=== PATIENT | male | born 1955 | race Caucasian/White ===

== ENCOUNTER → 2018-01-13 | Outpatient (CLI) | payer BC ==
[2018-01-13 15:27] LABS: ADD MAN DIFF? NO
[2018-01-13 15:31] LABS: BASO % 1 % (0-3); EOS # 0.3 x10^3/uL (0.0-0.7); EOS % 5 % (0-3); HEMOGLOBIN 12.7 g/dL (13.0-17.5); LYMPH # 2.2 x10^3/uL (1.0-4.8); LYMPH % 36 % (24-48); MEAN CORPUSCULAR HEMOGLOBIN 29 pg (25-35); MEAN CORPUSCULAR HGB CONC 34 g/dL (31-37); MEAN CORPUSCULAR VOLUME 88 fL (79-100); MONO # 0.7 x10^3/uL (0.0-1.1); MONO % 11 % (0-9); NEUT # 2.9 x10^3uL (1.8-7.7); NEUT % 47 % (31-73); PLATELET COUNT 251 x10^3/uL (140-400); RED BLOOD COUNT 4.33 x10^6/uL (4.30-5.70); RED CELL DISTRIBUTION WIDTH 14.8 % (11.5-14.5); WHITE BLOOD COUNT 6.1 x10^3/uL (4.0-11.0)
[2018-01-13 15:50] LABS: ALBUMIN 3.8 g/dL (3.4-5.0); ALBUMIN/GLOBULIN RATIO 1.1 (1.0-1.7); ALK PHOS 62 U/L (46-116); ALT (SGPT) 28 U/L (16-63); ANION GAP 9 (6-14); AST (SGOT) 22 U/L (15-37); BLOOD UREA NITROGEN 11 mg/dL (8-26); BUN/CREATININE RATIO 11 (6-20); CARBON DIOXIDE 29 mmol/L (21-32); CHLORIDE 101 mmol/L (98-107); GFR 76.2; GLUCOSE 108 mg/dL (70-99); POTASSIUM 4.2 mmol/L (3.5-5.1); SODIUM 139 mmol/L (136-145); TOTAL BILIRUBIN 0.3 mg/dL (0.2-1.0); TOTAL PROTEIN 7.4 g/dL (6.4-8.2)
[2018-01-14 02:12] LABS: HEMOGLOBIN A1C 6.3 % (4.8-5.6)
[2018-01-14 03:17] LABS: MRSA BY PCR Negative (Negative)
== END | disposition home or self-care (01) ==
LOC: SURGPAT 13:27
DX: Z01.818 Encounter for other preprocedural examination (principal); M48.061 Spinal stenosis, lumbar region without neurogenic claudication; M51.16 Intervertebral disc disorders with radiculopathy, lumbar region; I10 Essential (primary) hypertension
CPT/HCPCS: 36415; 80053; 83036; 85025; 87641; 93005

== ENCOUNTER → 2018-01-20 | Day surgery (SDC) | payer BC ==
[~2018-01-20] MED LIST: DESFLURANE > 120 MINUTES IH; DEXAMETHASONE SOD PHOS 20 MG/5 ML VIAL.; GLYCOPYRROLATE 1 MG/5 ML VIAL.; HYDROcodone/APAP 7.5/325MG 1 TAB TABLET; KETOROLAC 30 MG/ML INJ FOR OR. INJ; LIDOCAINE 1% PF 2 ML VIAL. ID; MIDAZOLAM HCL/PF 2 MG/2 ML VIAL.; MORPHINE SULFATE 4 MG/ML DISP.SYRIN. IV; ONDANSETRON PF 4 MG/2 ML VIAL.; ONDANSETRON PF 4 MG/2 ML VIAL. IV; PHENYLEPHRINE 10 MG/ML VIAL.; PROCHLORPERAZINE 10 MG/2 ML VIAL. IV; PROPOFOL 20 ML IV; PROPOFOL 50 ML IV; REMIFENTANIL 1 MG VIAL. IV; REMIFENTANIL 2 MG VIAL. IV; ROCURONIUM 50 MG/5 ML VIAL.; fentaNYL PF VIAL 100 MCG/2 ML VIAL; fentaNYL PF VIAL 100 MCG/2 ML VIAL IV
[2018-01-20] MEDS: IV RINGERS,LACTATED 1000ML 1,000 ML IV (08:02)
[2018-01-20 08:04] LABS: POC GLUCOSE 117 mg/dL (70-99)
[2018-01-20] MEDS: VANCOMYCIN 1GM IVPB FOR OMNI 250 ML IV (08:45)
[2018-01-20] MEDS: BUPIVACAINE MPF 0.5% 30 ML VIAL. IJ (09:27)
[2018-01-20] MEDS: THROMBIN TOPICAL 20,000 UNIT SPRAY.SYRN KIT TP (09:27)
[2018-01-20] MEDS: BACITRACIN 50,000 UNIT in IV NORMAL SALINE 1000ML BAG 1,000 ML IRR (09:27)
[2018-01-20] MEDS: EPINEPHrine 1 MG/ML VIAL INJ (09:27)
[2018-01-20] MEDS: GELATIN SPONGE SIZE 100. (09:27)
[2018-01-20] MEDS: KETOROLAC 60 MG/2 ML INJ FOR OR. (09:27)
[2018-01-20 12:23] LABS: POC GLUCOSE 133 mg/dL (70-99)
[2018-01-20] MEDS: fentaNYL PF VIAL 100 MCG/2 ML VIAL IV ×2 (13:08→13:18)
[2018-01-20] MEDS: HYDROcodone/APAP 7.5/325MG 1 TAB TABLET PO (13:24)
== END | disposition home or self-care (01) ==
LOC: SURG 06:55
DX: M48.061 Spinal stenosis, lumbar region without neurogenic claudication (principal); M51.26 Other intervertebral disc displacement, lumbar region; E11.9 Type 2 diabetes mellitus without complications; I10 Essential (primary) hypertension; M10.9 Gout, unspecified; Z90.49 Acquired absence of other specified parts of digestive tract; Z98.890 Other specified postprocedural states; Z88.0 Allergy status to penicillin; Z79.82 Long term (current) use of aspirin; Z79.84 Long term (current) use of oral hypoglycemic drugs; Z82.49 Family history of ischemic heart disease and other diseases of the circulatory system
CPT/HCPCS: 63030; 76000; 82962; 88304; 88311; 97162-GP; 97530-GP; G8978-CK-GP; G8979-CK-GP; G8980-CK-GP; J0171; J1100; J1885; J2250; J2405; J2704; J3010; J3370; J3490; J7030

== ENCOUNTER → 2019-06-16 | Outpatient (CLI) | payer OTHER ==
[2018-01-20 13:27] VITALS: BP 125/67
[~2019-06-16] MED LIST changes: +ASPI-630 PO; +ATOR10TA60 PO; +BUPR150T6 PO; +CELE200C PO; +CHOL10003 PO; +CYAN25008 PO; +CYCL10TA2 PO; -DESFLURANE > 120 MINUTES IH; -DEXAMETHASONE SOD PHOS 20 MG/5 ML VIAL.; +DEXT20TA2 PO; +DOCU-109 PO; +DULO60CA6 PO; +ESOM20CA PO; +GABA300C18 PO; -GLYCOPYRROLATE 1 MG/5 ML VIAL.; +HYDR-2765 PO; +HYDR-3164 PO; -HYDROcodone/APAP 7.5/325MG 1 TAB TABLET; +IBUP-1060 PO; -KETOROLAC 30 MG/ML INJ FOR OR. INJ; +LAMO150T2 PO; -LIDOCAINE 1% PF 2 ML VIAL. ID; +LORA10TA68 PO; +LOSA1TAB19 PO; +METF500T9 PO; -MIDAZOLAM HCL/PF 2 MG/2 ML VIAL.; -MORPHINE SULFATE 4 MG/ML DISP.SYRIN. IV; +MULT1TAB52 PO; -ONDANSETRON PF 4 MG/2 ML VIAL.; -ONDANSETRON PF 4 MG/2 ML VIAL. IV; -PHENYLEPHRINE 10 MG/ML VIAL.; -PROCHLORPERAZINE 10 MG/2 ML VIAL. IV; +PROP20TA PO; -PROPOFOL 20 ML IV; -PROPOFOL 50 ML IV; -REMIFENTANIL 1 MG VIAL. IV; -REMIFENTANIL 2 MG VIAL. IV; -ROCURONIUM 50 MG/5 ML VIAL.; +TADA5TAB PO; +TRAZ-86 PO; -fentaNYL PF VIAL 100 MCG/2 ML VIAL; -fentaNYL PF VIAL 100 MCG/2 ML VIAL IV
--- NOTE | 2019-06-17 02:55 | PAIN ---
DATE OF SERVICE: 06/16/2019 INITIAL CONSULTATION FOR PAIN CLINIC CHIEF COMPLAINT: Low back and left lower extremity pain. HISTORY OF PRESENT ILLNESS: This is a 63-year-old male who presents with history of pain in low back and left lower extremity, status post lumbar diskectomy at L4-5 on 01/20/2018. The patient did very well with this, but reports about 4 months ago, he fell off a ladder about 18 foot and started to have some increased pain in his back and that he fell twice at home of some stairs and on a wet floor within the last month or two causing increased pain in the low back, left leg radiating to posterior gluteus, posterior thigh, lateral thigh, anterior thigh, medial thigh, medial lower leg with pain in the foot, which is becoming more constant. Also, some significant spasms in the posterior gluteus, lateral thigh, anterior thigh and into the foot as well. The patient reports the right side has no significant symptoms, but some pain in the low back on the right as well. The patient reports the pain in the low back and left leg is sharp, stabbing, throbbing, shooting, radiating. It changes during the day, worse with activity, standing, walking, changing positions and intermittent in intensity, but always present, has aching as well in the back itself. The patient reports it is worse with standing, walking, changing positions, does awaken him from sleep, intermittently, but most every night. The patient reports it does not affect his bowel or bladder control, but does affect his ability to walk. He has left leg fatigues significantly from the right. He has had no loss of function completely, but significant fatigability on the left leg. The patient rates his disability rating from 0-10, 10 being the worst, is a 6-7 with family and home responsibilities, 9 with recreation and sexual behavior, 7-8 with occupational behavior, 2 with social activity, 6 with self-care activities and 0 with life support activities. The patient did have MRI scan of the lumbar spine showing interval postoperative changes at L4-5 with recurrent disk herniation broad-based posterior central disk protrusion with severe central stenosis and lateral narrowing. L5-S1 shows persistent shallow posterior central disk protrusion with local destruction of the annulus and mild central stenosis as well. PAST MEDICAL HISTORY: Significant for type 2 diabetes, hypertension, gastroesophageal reflux. PREVIOUS SURGERY: Includes appendectomy, lumbar diskectomy in 2018, carpal tunnel repair, umbilical hernia repair as well. CURRENT MEDICATIONS: Include Adderall, atorvastatin, bupropion, Cymbalta, lamotrigine, gabapentin, losartan, metformin, trazodone, propranolol, daily baby aspirin, Cialis, Claritin, ibuprofen, and multivitamins, also Nexium. ALLERGIES: THE PATIENT IS ALLERGIC TO PENICILLIN. FAMILY HISTORY: Significant for heart disease. SOCIAL HISTORY: The patient has a history of alcoholism, but is not drinking for years and does not smoke. Does not use any illegal, illicit or recreational drugs. He is , lives with his spouse. Lives locally in [place], [place] and works at the [employer] in [place] where he is on his feet most of his 8-hour shift working. REVIEW OF SYSTEMS: The patient's review of systems is positive for those items mentioned in history of present illness. All systems reviewed and otherwise negative. It is complete, full and well documented on the patient's chart. PHYSICAL EXAMINATION: VITAL SIGNS: The patient's blood pressure 147/88, pulse is 91, respirations 18, temperature 98.2 degrees Fahrenheit, height is 5 feet 8 inches, weight is 227 pounds. GENERAL: The patient is awake, alert, oriented, appropriate, very pleasant demeanor. HEENT: Shows normocephalic, atraumatic. Extraocular movements are intact and symmetrical. Oral cavity: Mucous membranes moist and pink. Dentition is intact. NECK: Shows anterior throat supple without palpable lymphadenopathy noted. Swallow reflex symmetrical. CHEST: Shows normal on inspection. Breath sounds clear to auscultation bilaterally. HEART: Shows S1, S2 clear. No murmurs auscultated. ABDOMEN: Soft, nontender, nondistended. No palpable organomegaly is noted. No rebound or guarding demonstrated. BACK: Shows spine grossly in the midline. Normal appearing thoracic kyphosis and minor flattening of lumbar lordotic curvature with well-healed surgical scar in the midline. Lumbar paraspinous muscle shows symmetrical on inspection, on palpation shows some moderate tenderness diffusely bilaterally in the lumbar paraspinous muscles, but only diffusely without significant radiation. The patient does show good rotational motion of lumbar spine, both laterally greater than 10 degrees right and left as well as extension greater than 10 degrees, forward flexion 45 degrees without significant increase in pain, no tenderness over the spinous processes, sacrum or sacroiliac regions. EXTREMITIES: The patient's lower extremities show deep tendon reflexes at 2+ in the patellar, 1+ tendo-calcaneus tendons, equal. Motor exam is approximately 4 on a scale of 5 on the left and 5/5 on the right with dorsiflexion, extension, quadriceps and hamstring flexion. Peripheral pulses are 1+ posterior tibial. No peripheral edema is noted bilaterally. Straight leg raise noted positive on the left at about 40 degrees. Right side is negative. Gaenslen's and Cheo's maneuvers are negative bilaterally. The patient is able to stand, has difficulty raising from a seated position as he requires the use of the arms of the chair to get up on his left side, is walking with a slight favoring gait, appears to favor the left lower extremity, not using any assistive devices, however, such as canes or walkers to ambulate. SKIN: Shows warm and dry, good turgor. No edema. No sores, rashes or bruising. IMPRESSION: 1. This is a 63-year-old male with history of low back pain, left lower extremity pain in a radicular fashion following L4-L5 dermatomal distribution, status post lumbar diskectomy on 01/20/2018 with recurrent pain and recurrent disk. 2. MRI scan of lumbar spine as noted. 3. Diabetes. 4. Hypertension. 5. Gastroesophageal reflux. PLAN: Options were discussed with the patient including conservative medical management, physical therapies, interventional techniques tried physical therapy, has also been doing stretching and strengthening exercises on his own. The physical therapy was too painful for him to complete, so he is doing some stretching on his own, which he reports does help, but only minimally. He would like to pursue interventional techniques as he has done well with these in the past. We discussed a lumbar epidural steroid injection using description as well as anatomical models to describe the procedure. The patient will wait for preauthorization from his insurance provider and we will plan on lumbar epidural steroid injection at the L4-5 level using fluoroscopic guidance at that time. In the meantime, we will give the patient Medrol Dosepak. The patient was given instruction as well as side effects to be aware with the medication and will follow up in approximately 2 weeks for plan on lumbar epidural steroid injection on his return. MIAH HOLT MD DR: Tremayne JOB#: [id number] / [id number]
== END | disposition home or self-care (01) ==
LOC: PNCL 09:45
PROVIDERS: ATTEND Anesthesiology
DX: M54.16 Radiculopathy, lumbar region (principal); E11.9 Type 2 diabetes mellitus without complications; I10 Essential (primary) hypertension; K21.9 Gastro-esophageal reflux disease without esophagitis; Z79.899 Other long term (current) drug therapy; Z90.89 Acquired absence of other organs; Z98.890 Other specified postprocedural states; Z88.0 Allergy status to penicillin
CPT/HCPCS: G0463

== ENCOUNTER → 2019-06-30 | Outpatient (CLI) | payer OTHER ==
[2018-01-20 13:27] VITALS: BP 125/67
[~2019-06-30] MED LIST changes: +IOHEXOL 180 MG/ML 10 ML VIAL. ONE; +METF500T11 PO; -METF500T9 PO; +methylPREDNISolone ACETATE 40 MG/ML VIAL. ONE; +methylPREDNISolone ACETATE 80 MG/ML VIAL. ONE
--- NOTE | 2019-06-30 12:27 | PAIN ---
DATE OF SERVICE: 06/30/2019 PROGRESS NOTE FOR PAIN CLINIC DIAGNOSES: Lumbar radiculopathy with lumbar degenerative disk disease and lumbar post-laminectomy syndrome. HISTORY OF PRESENT ILLNESS: The patient is a 63-year-old male, who returns for followup status post initial evaluation and preauthorization for epidural steroid injection. The patient has obtained that now and would like to proceed. The patient reports still significant pain in the low back, mostly in the left side greater than right, posterior gluteus, posterior thigh and calf. The patient reports it is an 8 on a scale of 10 at its worst in the past week, 7 on average, 3 at its least and is a 7 today. The patient reports it is sharp and shooting, constant in the left foot and the front of the foot when sitting and the back in the foot when standing, on and off in intensity. The patient reports no new motor or sensory deficits, no new bowel or bladder incontinence. PHYSICAL EXAMINATION: VITAL SIGNS: The patient's blood pressure is 132/83, pulse 77, respirations 18, temperature 98.4 degrees Fahrenheit. Height is 5 feet 8 inches, weight is 229 pounds. GENERAL: The patient is awake, alert, oriented, appropriate, very pleasant demeanor. HEENT: Shows normocephalic, atraumatic. Extraocular movements are intact and symmetrical. Oral cavity: Mucous membranes moist and pink; dentition is intact. NECK: Shows anterior throat supple without palpable lymphadenopathy noted. Swallow reflex symmetrical. CHEST: Shows normal on inspection. Breath sounds clear to auscultation bilaterally. HEART: Shows S1, S2 clear. No murmurs auscultated. ABDOMEN: Soft, nontender and nondistended. No palpable organomegaly is noted. No rebound or guarding demonstrated. BACK: Shows spine grossly in the midline. Normal-appearing thoracic kyphosis and lumbar lordotic curvature. Lumbar paraspinous muscle shows symmetrical on inspection with a well-healed surgical scar. Paraspinous muscles are markedly tender on palpation in the middle and lower distribution of the paraspinous muscles without radiation. EXTREMITIES: The patient's lower extremities show deep tendon reflexes are 2+ in the patellar and 1+ in the tendo-calcaneus tendons. Motor exam is approximately 4 on a scale of 5 on the left with dorsiflexion and extension, 5/5 on the right. Peripheral pulses are 1+, posterior tibial. No peripheral edema is noted bilaterally. Options were discussed with the patient. The patient's old chart was reviewed as his current medication regimen updated. Current review of systems updated today as well. We will proceed with a lumbar epidural steroid injection today with fluoroscopic guidance. Risks were again discussed including, but not limited to bleeding, infection, possibility of epidural hematoma, subsequent neurologic compromise, dural puncture, headaches, spinal cord and/or nerve damage, side effects of steroid medication and poor results regarding pain control. The patient understands and wished to proceed. The patient will return to clinic in approximately 2 weeks for followup. He was counseled on return appointment, activity level and side effects to be aware of. DIAGNOSES: Lumbar radiculopathy with lumbar degenerative disk disease, post-lumbar laminectomy syndrome. PROCEDURE: Lumbar epidural steroid injection, translaminar approach, L5-S1 level, using C-arm fluoroscopic guidance under sterile prep and drape using local anesthetic. MEDICATION INJECTED: A total of 120 mg Depo-Medrol plus 10 mL of preservative-free normal saline and 2 mL of contrast. CONDITION AT DISCHARGE: Stable. The patient tolerated procedure well, had no complications. MIAH HOLT MD DR: LORENE/jean paul JOB#: [id number] / [id number]
== END ==
LOC: PNCL 08:51
PROVIDERS: ATTEND Anesthesiology
DX: M51.16 Intervertebral disc disorders with radiculopathy, lumbar region (principal); M96.1 Postlaminectomy syndrome, not elsewhere classified; M54.5 Low back pain
CPT/HCPCS: 62323; J1030; J1040; Q9965

== ENCOUNTER → 2019-07-21 | Outpatient (CLI) | payer OTHER ==
[2018-01-20 13:27] VITALS: BP 125/67
[~2019-07-21] MED LIST changes: -IOHEXOL 180 MG/ML 10 ML VIAL. ONE; -LAMO150T2 PO; +LAMO150T4 PO; -methylPREDNISolone ACETATE 40 MG/ML VIAL. ONE; -methylPREDNISolone ACETATE 80 MG/ML VIAL. ONE
--- NOTE | 2019-07-22 01:26 | PAIN ---
DATE OF SERVICE: 07/21/2019 PROGRESS NOTE FOR PAIN CLINIC DIAGNOSES: Lumbar radiculopathy with lumbar degenerative disk disease and post-lumbar laminectomy syndrome. HISTORY OF PRESENT ILLNESS: The patient is a 63-year-old male who returns for followup status post lumbar epidural steroid injection x 1. The patient reports about 75% improvement initially for the first few weeks. After the past few days, it is down to about a 50% improvement, doing much better overall. The patient reports still pain in the low back and into the left lower extremity, posterior gluteus, posterior thigh, posterior calf and heel, but the patient reports the pain was almost completely resolved and the heel after the first injection is beginning to return now. The patient reports he was increasing his activity with greater distance walking, doing work activities, home activities with greater ease and comfort. The patient reports still has some muscle cramps in the legs only thing that keeps him up at night. Otherwise, he sleeps well without disturbance from the pain. The patient rates his pain over the past week at 8 on a scale of 10 at its worst, 6 on average, 1 at its least and is a 6 today. The patient reports it is sharp, stabbing, becoming more constant starting to return, but still on and off in intensity. The patient reports still radicular pain in the L5-S1 dermatomal distribution on the left. No motor loss, no new bowel or bladder incontinence. PHYSICAL EXAMINATION: VITAL SIGNS: The patient's blood pressure is 112/75, pulse 74, respirations 18, temperature 98.1 degrees Fahrenheit, height is 5 feet 8 inches, weight is 226 pounds. GENERAL: The patient is awake, alert, oriented, appropriate, very pleasant demeanor. HEENT: Shows normocephalic, atraumatic. Extraocular movements are intact and symmetrical. Oral cavity: Mucous membranes moist and pink. Dentition is intact. NECK: Shows anterior throat supple without palpable lymphadenopathy noted. Swallow reflex symmetrical. CHEST: Shows normal on inspection. Breath sounds are clear to auscultation bilaterally. HEART: Shows S1, S2 clear. No murmurs auscultated. ABDOMEN: Soft, nontender, nondistended. No palpable organomegaly is noted. No rebound or guarding demonstrated. BACK: Shows spine grossly in the midline. Normal appearing thoracic kyphosis, some minor flattening of lumbar lordotic curvature with well-healed surgical scarring noted in the lumbar distribution. Lumbar paraspinous muscle shows symmetrical on inspection, on palpation shows some moderate tenderness diffusely, but only diffusely without significant radiation in the lumbar paraspinous musculature itself. The patient shows good rotational motion of lumbar spine, both laterally as well as extension and flexion without difficulty. EXTREMITIES: The patient's lower extremities show deep tendon reflexes at 2+ in the patellar, 1+ tendo-calcaneus tendons. Motor exam is approximately 4 on a scale of 5 on the left, 5/5 on the right with dorsiflexion and extension. Peripheral pulses are 1+ posterior tibial. No peripheral edema is noted. The patient still has a slight straight leg raise on the left at about 40 degrees, decreased with knee flexion, right side is negative. Options were discussed with the patient. The patient's old chart was reviewed as his current medication regimen updated. Current review of systems updated today as well. We will preauthorize the patient for a second lumbar epidural steroid injection and the patient still has clinical radiculopathy in the L5-S1 dermatomal distribution on the left. We will plan for lumbar L5-S1 level epidural steroid injection on return. The patient will continue doing stretching and strengthening exercises on his own, still walking daily as tolerated, maintain his exercise. The patient will return to clinic as scheduled plan on second lumbar epidural steroid injection at that time. MIAH HOLT MD DR: LORENE/jean paul JOB#: [id number] / [id number]
== END | disposition home or self-care (01) ==
LOC: PNCL 14:12
PROVIDERS: ATTEND Anesthesiology
DX: M51.16 Intervertebral disc disorders with radiculopathy, lumbar region (principal)
CPT/HCPCS: G0463

== ENCOUNTER → 2019-08-04 | Outpatient (CLI) | payer OTHER ==
[2018-01-20 13:27] VITALS: BP 125/67
[~2019-08-04] MED LIST changes: +IOHEXOL 180 MG/ML 10 ML VIAL. ONE; +LAMO150T2 PO; -LAMO150T4 PO; +methylPREDNISolone ACETATE 40 MG/ML VIAL. ONE; +methylPREDNISolone ACETATE 80 MG/ML VIAL. ONE
--- NOTE | 2019-08-04 08:52 | PAIN ---
DATE OF SERVICE: 08/04/2019 PROGRESS NOTE FOR PAIN CLINIC DIAGNOSES: Lumbar radiculopathy with lumbar degenerative disk disease and lumbar postlaminectomy syndrome. HISTORY OF PRESENT ILLNESS: The patient is a 63-year-old male who returns for followup status post lumbar epidural steroid injection x1 with about 75% improvement initially. The patient reports still pain returning in the low back and left lower extremity. He is waiting for preauthorization with insurance provider, which he is obtained and would like to proceed with a second injection today, still has pain in the low back, left lower extremity, posterior gluteus, posterior thigh, and posterior calf. The patient reports it is an 8 on a scale of 10 at its worst, 7 on average, 3 at its least, and is a 7 today. The patient reports it is becoming constant, aching, shooting with walking, standing, better with sitting or lying down, awakens him from sleep occasionally, but not more than every 5 hours at night. The patient reports no new motor or sensory deficits. No new bowel or bladder incontinence. He has some back spasms and cramps as well and feels that his balance is off as he is favoring his left lower extremity. PHYSICAL EXAMINATION: VITAL SIGNS: The patient's blood pressure 129/99, pulse 68, respirations are 16, temperature is 98.0 degrees Fahrenheit, height is 5 feet 8 inches, and weight is 228 pounds. GENERAL: The patient is awake, alert, oriented, appropriate, very pleasant demeanor. HEENT: Shows normocephalic, atraumatic. Extraocular movements are intact and symmetrical. Oral cavity: Mucous membranes moist and pink. Dentition is intact. NECK: Shows anterior throat supple without palpable lymphadenopathy noted. Swallow reflex symmetrical. CHEST: Shows normal on inspection. Breath sounds clear to auscultation bilaterally. HEART: Shows S1, S2 clear. No murmurs auscultated. ABDOMEN: Soft, nontender, and nondistended. No palpable organomegaly is noted. No rebound or guarding demonstrated. BACK: Shows spine grossly in the midline. Normal appearing thoracic kyphosis and some minor flattening of lumbar lordotic curvature. Well-healed lumbar surgical scar noted. Lumbar paraspinous muscle shows symmetrical on inspection, on palpation shows some moderate tenderness diffusely without significant radiation. The patient has good rotational motion of the lumbar spine both laterally as well as extension and flexion without significant pain reported with rotation or extension and flexion bilaterally. EXTREMITIES: Lower extremities show deep tendon reflexes 2+ in the patellar, 1+ tendo-calcaneus tendons. Motor exam is approximately 4 on a scale 5 on the left with dorsiflexion and extension, 5/5 on the right. Peripheral pulses are 1+ posterior tibia. No peripheral edema is noted bilaterally. Options were discussed with the patient. The patient's old chart was reviewed as his current medication regimen updated. Current review of systems updated today as well and we will proceed with a second lumbar epidural steroid injection today with fluoroscopic guidance. Risks were again discussed including, but not limited to bleeding, infection, possibility of epidural hematoma, subsequent neurological compromise, dural puncture, headaches, spinal cord and/or nerve damage, side effects of steroid medication and poor results regarding pain control. The patient understands and wished to proceed. The patient will return to clinic in approximately 2 weeks for followup. She was counseled on return appointment, activity level, and side effects to be aware of. DIAGNOSES: Lumbar radiculopathy with lumbar degenerative disk disease and lumbar postlaminectomy syndrome. PROCEDURE: Lumbar epidural steroid injection, translaminar approach L5-S1 level using Luda fluoroscopic guidance under sterile prep and drape using local anesthetic. MEDICATION INJECTED: Total of 120 mg Depo-Medrol plus 10 mL of preservative-free normal saline and 2 mL of contrast. CONDITION AT DISCHARGE: Stable. The patient tolerated the procedure well, had no complications. MIAH HOLT MD DR: LORENE/jean paul JOB#: [id number] / [id number]
== END ==
LOC: PNCL 07:30
PROVIDERS: ATTEND Anesthesiology
DX: M51.16 Intervertebral disc disorders with radiculopathy, lumbar region (principal); M96.1 Postlaminectomy syndrome, not elsewhere classified
CPT/HCPCS: 62323; J1030; J1040; Q9965

== ENCOUNTER → 2019-08-18 | Outpatient (CLI) | payer OTHER ==
[2018-01-20 13:27] VITALS: BP 125/67
[~2019-08-18] MED LIST changes: -IOHEXOL 180 MG/ML 10 ML VIAL. ONE; -LAMO150T2 PO; +LAMO150T4 PO; -methylPREDNISolone ACETATE 40 MG/ML VIAL. ONE; -methylPREDNISolone ACETATE 80 MG/ML VIAL. ONE
--- NOTE | 2019-08-18 09:20 | PAIN ---
DATE OF SERVICE: 08/18/2019 PROGRESS NOTE FOR PAIN CLINIC DIAGNOSES: Lumbar radiculopathy with lumbar degenerative disk disease and lumbar post-laminectomy syndrome. HISTORY OF PRESENT ILLNESS: The patient is a 63-year-old male who returns for followup status post lumbar epidural steroid injection x 2. The patient reports about 75% improvement initially in the low back and left lower extremity. The patient reports he is having some increased pain. He does have increased stressors at work. He has been on his feet more often in the last week, but before that was walking greater distances, doing work activities with greater ease and comfort as well as household activities, traveling with greater ease. The patient reports it is still not waking him from sleep at night, better with sitting or lying down, worse with walking, standing, changing positions. The patient reports the pain is returning in the low back, bilateral lower extremities, posterior gluteus, posterolateral thigh, lateral anterior thigh, posterior lower legs, especially on the left side, but some on the right as well. The patient reports it is cramping, aching, shooting, on and off in intensity, again worse with activity. The patient rates it is 8 on a scale of 10 at its worst over the past week, 7 on average, 3 at its least and is a 5 today. The patient reports no new motor or sensory deficits, no new bowel or bladder incontinence. Still with some significant radicular pain now, in a L5-S1 dermatomal distribution, again worse on the left. PHYSICAL EXAMINATION: VITAL SIGNS: The patient's blood pressure 140/83, pulse 80, respirations 16, temperature 97.8 degrees Fahrenheit, weight is 226 pounds. GENERAL: The patient is awake, alert, oriented, appropriate, very pleasant demeanor. HEENT: Head shows normocephalic and atraumatic. Extraocular movements are intact and symmetrical. Oral cavity: Mucous membranes moist and pink. Dentition is intact. NECK: Shows anterior throat supple without palpable lymphadenopathy noted. Swallow reflex is symmetrical. CHEST: Shows normal on inspection. Breath sounds are clear bilaterally. HEART: Shows S1, S2 clear. ABDOMEN: Soft, nontender, nondistended. BACK: Shows spine grossly in the midline. Normal appearing thoracic kyphosis, some minor flattening of lumbar lordotic curvature with well-healed surgical scarring noted. Lumbar paraspinous muscle shows symmetrical on inspection. On palpation shows some moderate tenderness diffusely in the low lumbar distribution, but without radiation. The patient has good rotational motion of lumbar spine, both laterally as well as extension and flexion without significant increase in pain. EXTREMITIES: Lower extremities show deep tendon reflexes 2+ in the patellar, 1+ tendo-calcaneus tendons. Motor exam is approximately 4 on a scale of 5 with left dorsiflexion, extension, 5/5 on the right. Peripheral pulses are 1+ posterior tibial. No peripheral edema is noted. Options were discussed with the patient. The patient's old chart was reviewed as his current medication regimen updated. Current review of systems updated today as well and we will preauthorize the patient for lumbar epidural steroid injection #3, as he has done quite well with the last 2 about 75% improvement initially, pain returning on the low back in a radicular pattern in the L5-S1 dermatomal distribution, worse on the left than the right. The patient will continue doing stretching and strengthening exercises, walking as tolerated. The patient will return to clinic in approximately 1 week for third lumbar epidural steroid injection at the L5-S1 level at that time. MIAH HOLT MD DR: LORENE/jean paul JOB#: [id number] / [id number]
== END | disposition home or self-care (01) ==
LOC: PNCL 07:40
PROVIDERS: ATTEND Anesthesiology
DX: M51.16 Intervertebral disc disorders with radiculopathy, lumbar region (principal); M96.1 Postlaminectomy syndrome, not elsewhere classified
CPT/HCPCS: G0463

== ENCOUNTER → 2019-09-15 | Outpatient (CLI) | payer OTHER ==
[2018-01-20 13:27] VITALS: BP 125/67
[~2019-09-15] MED LIST changes: +IOHEXOL 180 MG/ML 10 ML VIAL. ONE; +methylPREDNISolone ACETATE 40 MG/ML VIAL. ONE; +methylPREDNISolone ACETATE 80 MG/ML VIAL. ONE
--- NOTE | 2019-09-15 08:25 | PAIN ---
DATE OF SERVICE: 09/15/2019 PROGRESS NOTE FOR PAIN CLINIC DIAGNOSES: Lumbar radiculopathy with lumbar degenerative disk disease and lumbar post-laminectomy syndrome. HISTORY OF PRESENT ILLNESS: The patient is a 64-year-old male who returns for followup status post lumbar epidural steroid injections x 2. The patient reports about 75% improvement initially, but now the pain is shifted to the right side in his low back and leg more than the left. The patient reports it is worse with walking, standing, especially about an hour after he gets up in the morning and throughout the day with weightbearing. The patient reports it is better with sitting or lying down. Rates as a 9 on a scale of 10 at its worst over the past week, 8 on average, 3 at its least and is an 8 today. The patient reports it is sharp and tight, constant, again more on the right side, the posterior gluteus, posterior thigh and calf, some on the right as well anteriorly, but mostly across the low back posteriorly and some on the left side. The left side doing much better, but the right side now is quite painful. The patient reports no new motor or sensory deficits, no new bowel or bladder incontinence. Initially, he was increasing his activity with distance walking, doing work activities, household activities, but now over the past week or so, the right side has been hurting. He has been decreasing his activity as well. The patient reports no new motor or sensory deficits, no new bowel or bladder incontinence or other complaints. PHYSICAL EXAMINATION: VITAL SIGNS: The patient's blood pressure is 155/103, pulse 84, respirations 16, temperature 97.4 degrees Fahrenheit, height is 5 feet 8 inches and weight is 231 pounds. GENERAL: The patient is awake, alert, oriented, appropriate, very pleasant demeanor. HEENT: Shows normocephalic, atraumatic. Extraocular movements are intact and symmetrical. Oral cavity shows mucous membranes moist and pink. Dentition is intact. NECK: Shows anterior throat supple without palpable lymphadenopathy noted. Swallow reflex symmetrical. CHEST: Shows normal on inspection. Breath sounds clear to auscultation bilaterally. HEART: Shows S1, S2 clear. No murmurs auscultated. ABDOMEN: Soft, nontender, nondistended. No palpable organomegaly is noted. No rebound or guarding demonstrated. BACK: Shows spine grossly in the midline. Normal appearing thoracic kyphosis and some minor flattening of lumbar lordotic curvature with well-healed surgical scar noted. Lumbar paraspinous muscle shows symmetrical on inspection, on palpation shows some moderate tenderness diffusely without radiation. The patient has good rotational motion of lumbar spine, both laterally as well as extension and flexion. EXTREMITIES: The patient's lower extremities show deep tendon reflexes 2+ in the patellar, 1+ tendo-calcaneus tendons. Motor exam is 4 on a scale of 5 on the left and 5/5 on the right with dorsiflexion, extension, but intact. Peripheral pulses are 1+ posterior tibia. No peripheral edema is noted. Options were discussed with the patient. The patient's old chart was reviewed as his current medication regimen updated. Current review of systems updated today as well. We will proceed with a third in the series of lumbar epidural steroid injection today with fluoroscopic guidance. Risks were again discussed including, but not limited to bleeding, infection, possibility of epidural hematoma, subsequent neurological compromise, dural puncture, headaches, spinal cord and/or nerve damage, side effects of steroid medication and poor results regarding pain control. The patient understands and wished to proceed. The patient will return to clinic in approximately 2 weeks for followup. He was counseled as to return appointment, activity level and side effects to be aware of. DIAGNOSIS: Lumbar radiculopathy with lumbar degenerative disk disease and lumbar post-laminectomy syndrome. PROCEDURE: Lumbar epidural steroid injection, translaminar approach at L5-S1 level using C-arm fluoroscopic guidance under sterile prep and drape using local anesthetic. MEDICATION INJECTED: A total of 120 mg Depo-Medrol plus 10 mL of preservative-free normal saline and 2 mL of contrast. CONDITION AT DISCHARGE: Stable. The patient tolerated procedure well, had no complications. MIAH HOLT MD DR: LORENE/jean paul JOB#: [id number] / [id number]
== END ==
LOC: PNCL 07:39
PROVIDERS: ATTEND Anesthesiology
DX: M51.16 Intervertebral disc disorders with radiculopathy, lumbar region (principal); M96.1 Postlaminectomy syndrome, not elsewhere classified
CPT/HCPCS: 62323; J1030; J1040; Q9965

== ENCOUNTER → 2021-03-01 | Outpatient (CLI) | payer OTHER ==
[2018-01-20 13:27] VITALS: BP 125/67
[~2021-03-01] MED LIST changes: +BUPR150T21 PO; -BUPR150T6 PO; -IOHEXOL 180 MG/ML 10 ML VIAL. ONE; +METF-658 PO; -METF500T11 PO; +METH-562 PO; +METH4TAB2 PO; +MULT-445 PO; -MULT1TAB52 PO; +OXYC1TAB15 PO; +TRAZ-123 PO; -TRAZ-86 PO; -methylPREDNISolone ACETATE 40 MG/ML VIAL. ONE; -methylPREDNISolone ACETATE 80 MG/ML VIAL. ONE
[2021-03-01 13:24] LABS: BASO % 0 % (0-3); EOS % 1 % (0-3); HEMATOCRIT 33.6 % (39.0-53.0); HEMOGLOBIN 11.5 g/dL (13.0-17.5); LYMPH # 0.4 x10^3/uL (1.0-4.8); LYMPH % 11 % (24-48); MEAN CORPUSCULAR HEMOGLOBIN 30 pg (25-35); MEAN CORPUSCULAR HGB CONC 34 g/dL (31-37); MEAN CORPUSCULAR VOLUME 88 fL (79-100); MONO # 0.3 x10^3/uL (0.0-1.1); MONO % 8 % (0-9); NEUT # 3.2 x10^3/uL (1.8-7.7); NEUT % 80 % (31-73); PLATELET COUNT 164 x10^3/uL (140-400); RED BLOOD COUNT 3.83 x10^6/uL (4.30-5.70); RED CELL DISTRIBUTION WIDTH 15.1 % (11.5-14.5)
--- NOTE | 2021-03-01 13:36 | EKG ---
[facility] [address] [place] [address] Test Date: 2021-03-01 Test Time: 13:32:36 Pat Name: ALICIA LAGOS Department: Room: Gender: M [employer] E[employer] Assistant: : 1955 Requested By: DAVID WOLF Order Number: [id number] Reading MD: Jacob Santo Measurements Intervals [place] Rate: 93 P: 11 [place]: 134 QRS: 54 QRSD: 100 T: 88 QT: 356 QTc: 445 Interpretive Statements SINUS RHYTHM MINIMAL NONSPECIFIC ST CHANGES RI6.02 Compared to ECG 01/13/2018 15:44:36 No significant changes Electronically Signed On 03-02-2021 12:07:28 CDT by Jacob Santo
[2021-03-01 13:43] LABS: PROTHROMBIN TIME PATIENT 15.5 SEC (11.7-14.0)
[2021-03-01 13:45] LABS: ALBUMIN 3.7 g/dL (3.4-5.0); ALBUMIN/GLOBULIN RATIO 1.3 (1.0-1.7); CALCIUM 8.3 mg/dL (8.5-10.1); GFR 75.5; TOTAL BILIRUBIN 0.6 mg/dL (0.2-1.0); TOTAL PROTEIN 6.5 g/dL (6.4-8.2)
--- NOTE | 2021-03-01 16:03 | RAD ---
EXAM: Chest, 2 views. HISTORY: Hypertension. Preoperative evaluation. COMPARISON: None. FINDINGS: 2 views of the chest are obtained. There is no infiltrate, pleural effusion or pneumothorax . The heart is normal in size. IMPRESSION: No acute pulmonary finding. Electronically signed by: Cherelle Reardon MD (03/01/2021 4:01 PM) [facility]
[2021-03-03 01:11] LABS: HEMOGLOBIN A1C 6.1 % (4.8-5.6)
== END ==
LOC: SURGPAT 12:55
PROVIDERS: ATTEND Neurological Surgery
DX: Z01.818 Encounter for other preprocedural examination (principal); M48.062 Spinal stenosis, lumbar region with neurogenic claudication; M54.16 Radiculopathy, lumbar region; I10 Essential (primary) hypertension; Z20.822 Contact with and (suspected) exposure to COVID-19
CPT/HCPCS: 36415; 71046; 80053; 83036; 85025; 85610; 85730; 87641; 93005; U0003; U0005

== ENCOUNTER → 2021-06-12 | Outpatient (CLI) | payer OTHER ==
[2021-03-08 11:00] VITALS: BP 119/75
--- NOTE | 2021-06-12 12:15 | RAD ---
EXAM: Lumbar spine, 3 views. HISTORY: Lumbar fusion. COMPARISON: None. FINDINGS: 3 views of the lumbar spine are obtained. There is instrumented posterior spinal fusion and disc space fusion device placement at L4-L5. There is no lucency surrounding the instrumentation to suggest loosening. There is mild dextroscoliosis centered at L4. There is slight retrolisthesis of L3 on L4. There is degenerative endplate remodeling primarily at L4-L5 and facet arthropathy primarily at L5-S1. IMPRESSION: 1. Instrumented fusion at L4-L5. 2. Mild lumbar scoliosis and slight listhesis, described above. 3. Degenerative endplate remodeling and facet arthropathy primarily at the lower lumbar levels. Electronically signed by: Cherelle Reardon MD (06/12/2021 12:13 PM) [id number]
== END ==
LOC: RAD 11:21
PROVIDERS: ATTEND Neurological Surgery
DX: M47.817 Spondylosis without myelopathy or radiculopathy, lumbosacral region (principal); M41.86 Other forms of scoliosis, lumbar region; Z98.890 Other specified postprocedural states
CPT/HCPCS: 72100